=== PATIENT | male | born 1975 | race Hispanic/Latino ===

== ENCOUNTER 2017-01-17 13:54 | Emergency (ER) | payer OTHER ==
[2017-01-17 15:05] LABS: Hematocrit 44.5 % (35.5-45.6); Hemoglobin 14.6 gm/dl (11.8-15.2); Mean Corpuscular HGB Conc 33 % (32-34); Mean Corpuscular Hemoglobin 30 pg (28-32); Mean Corpuscular Volume 90 fl (84-94); Red Blood Count 4.94 M/mm3 (3.65-5.03)
[2017-01-17 15:06] LABS: Basophils % (Auto) 0.8 % (0.0-1.8); Eosinophils % (Auto) 0.9 % (0.0-4.3); Platelet Count 291 K/mm3 (140-440); Red Cell Distribution Width 15.4 % (13.2-15.2)
[2017-01-17 15:18] LABS: BUN/Creatinine Ratio 16.66; Blood Urea Nitrogen 10 mg/dL (9-20); Calcium 8.8 mg/dL (8.4-10.2); Carbon Dioxide 30 mmol/L (22-30); Glucose 91 mg/dL (75-100)
[2017-01-17 15:19] LABS: Anion Gap 12 mmol/L; Chloride 99.8 mmol/L (98-107); Potassium 4.2 mmol/L (3.6-5.0); Sodium 138 mmol/L (137-145)
[2017-01-17 15:38] LABS: Bilirubin,Urine NEG (Negative); Blood,Urine NEG (Negative); Ketones,Urine NEG (Negative); Leukocyte Esterase,Urine NEG (Negative); Nitrite,Urine NEG (Negative); Protein,Urine <15 mg/dL mg/dL (Negative); Urobilinogen,Urine < 2.0 mg/dL (<2.0); WBC,Urine < 1.0 /HPF (0.0-6.0)
--- NOTE | 2017-01-17 22:11 | Emergency Department Report ---
HPI - General Chief Complaint: Extremity Problem,Nontraumatic Time Seen by Provider: 01/17/17 21:40 - HPI HPI: This is a 41-year-old male presents to the emergency Department after driving himself in to be seen with a complaint of swollen ankles for the past 2 days. He also complains of some chronic lower back pain. He denies any problems with bowel or bladder, numbness or paresthesias or any neurological deficits. He has not taken anything for symptoms prior to presentation. The patient admits to some supplemental medication to help workout that he thinks is supposed to either increase his testosterone or converts to some type of estrogen, based on his Internet research. He otherwise only takes some Xanax occasionally for anxiety. 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 He has a primary care doctor, Dr. Hess, but has not seen them regarding his symptoms. He denies any shortness of breath, chest pain, fever, skin color change. No recent travel or sick contacts at home. ED Past Medical Hx - Past Medical History Additional medical history: Allergy to meat - MMA - Surgical History Additional Surgical History: Appendix, Right Ulna, intestine surgery - Social History Smoking Status: Current Some Day Smoker Substance Use Type: None - Medications Home Medications: Home Medications Medication Instructions Recorded Confirmed Last Taken Type traMADol [Ultram] 50 mg PO Q6HR PRN #8 tablet 01/17/17 Unknown Rx ED Review of Systems ROS: Stated complaint: SWOLLEN ANKLES/SEVERE BACK PAIN Other details as noted in HPI Comment: All other systems reviewed and negative Constitutional: denies: chills, fever Eyes: denies: eye pain, eye discharge, vision change ENT: denies: ear pain, throat pain Respiratory: denies: cough, shortness of breath, wheezing Cardiovascular: edema. denies: chest pain Gastrointestinal: denies: abdominal pain, nausea, diarrhea Genitourinary: denies: urgency, dysuria Musculoskeletal: back pain. denies: arthralgia Skin: denies: rash, lesions Neurological: denies: headache, weakness, paresthesias Physical Exam - Physical Exam Vital Signs: Vital Signs 01/17/17 14:33 Temperature 98.1 F Pulse Rate 103 H Respiratory 18 Rate Blood Pressure 132/97 O2 Sat by Pulse 98 Oximetry Physical Exam: GENERAL: The patient is well-developed well-nourished. HEENT: Normocephalic. Atraumatic. Extraocular motions are intact. Patient has moist mucous membranes. Pupils equal reactive to light bilaterally. NECK: Supple. Trachea is midline. CHEST/LUNGS: Clear to auscultation. There is no respiratory distress noted. HEART/CARDIOVASCULAR: Regular. There is no tachycardia. There is no gallop rub or murmur. ABDOMEN: Abdomen is soft, nontender. Patient has normal bowel sounds. There is no abdominal distention. SKIN: There is mild pitting edema to the bilateral ankles but no skin color change. No bleeding, weeping or drainage. NEURO: The patient is awake, alert, and oriented. The patient is cooperative. The patient has no focal neurologic deficits. The patient has normal speech and gait. Cranial nerves II through XII grossly intact. MUSCULOSKELETAL: There is no tenderness or deformity. There is no limitation range of motion. There is no evidence of acute injury. Muscle strength 5 out of 5 upper and lower extremity bilaterally including EHL. Pupils is +2 over 4 bilaterally. ED Course Vital Signs 01/17/17 14:33 Temperature 98.1 F Pulse Rate 103 H Respiratory 18 Rate Blood Pressure 132/97 O2 Sat by Pulse 98 Oximetry ED Medical Decision Making - Lab Data Result diagrams: 01/17/17 14:49 01/17/17 14:49 - Medical Decision Making 41-year-old male presents with the main complaint of bilateral ankle swelling for the past 2 days. There has been no trauma. He has no history of CHF, coagulopathy or any other significant conditions. On physical exam he does have some mild swelling to the bilateral ankles but no skin color change, bleeding, weeping or drainage. Patient's labs are unremarkable including no signs of leukocytosis, electrolyte abnormalities, renal insufficiency, glucose abnormalities. BNP is only 63. While there is low suspicion for bilateral lower extremity DVT from the symptoms of bilateral ankle swelling, the patient will be sent for a outpatient imaging ultrasound bilateral venous Doppler. If positive he will be referred back to the emergency department. If negative he will follow-up with his primary care doctor, Dr. Hess. Patient also complains of some back pain but there is no midline or thoracic tenderness palpation or deformity and the back pain is known to be chronic. He has no problems with numbness or paresthesias, bowel or bladder any neurological deficits. He does not appear to have any of the emergent back conditions such as cauda equina, epidural abscess or cord compression syndrome. He will be given a very small amount of medication to get him to his primary care doctor. - Differential Diagnosis back sprain, strain, DVT, CHF, venous stasis Critical Care Time: No Critical care attestation.: If time is entered above; I have spent that time in minutes in the direct care of this critically ill patient, excluding procedure time. ED Disposition Clinical Impression: Swollen ankles Chronic back pain Qualifiers: Back pain location: low back pain Back pain laterality: bilateral Sciatica presence: without sciatica Qualified Code(s): M54.5 - Low back pain; G89.29 - Other chronic pain Hypertension Qualifiers: Hypertension type: essential hypertension Qualified Code(s): I10 - Essential ( primary) hypertension Disposition: DISCHARGED TO HOME OR SELFCARE Is pt being admited?: No Condition: Stable Instructions: Hypertension (ED), Chronic Back Pain (ED), Leg Edema (ED) Additional Instructions: Please follow-up with your primary care doctor in the next few days. I have given you an order for an outpatient lower extremity venous Doppler ultrasound to rule out DVT. Call the number provided to schedule an appointment tomorrow. If positive, he will be referred back to the emergency department. If negative you are to continue with the plan to follow-up with your primary care physician. Return to the ER with any worsening of her symptoms, development of chest pain or shortness of breath, or any acute distress. You've been prescribed a medication that is sedating. Therefore this medication cannot be mixed with alcohol, or taken prior to driving, working, or being responsible for children. Prescriptions: traMADol [Ultram] 50 mg PO Q6HR PRN #8 tablet PRN Reason: Pain Referrals: PRIMARY CARE, [Primary Care Provider] - EDUARDO Time of Disposition: 22:45
[2017-01-17 22:14] VITALS: BP 152/87
== END 2017-01-17 22:55 | disposition home or self-care (01) ==
LOC: ED 13:54
DX: M54.5 Low back pain (principal); G89.29 Other chronic pain; I10 Essential (primary) hypertension; M25.471 Effusion, right ankle; M25.472 Effusion, left ankle; F17.200 Nicotine dependence, unspecified, uncomplicated
CPT/HCPCS: 36415; 80048; 81001; 83880; 85025; 93005; 93010; 99283

== ENCOUNTER 2017-01-18 16:01 | Outpatient (CLI) | payer OTHER | END 2017-01-18 16:02 | disposition home or self-care (01) | LOC: VAS 16:01 | PROVIDERS: ATTEND Emergency Medicine | DX: M79.661 Pain in right lower leg (principal); M79.662 Pain in left lower leg; R60.9 Edema, unspecified | CPT/HCPCS: 93970 ==